=== PATIENT | female | born 1960 | race Caucasian/White ===

== ENCOUNTER → 2018-01-03 12:14 | Outpatient (CLI) | payer OTHER, SELFPAY ==
--- NOTE | 2018-01-03 12:23 | US_ITS ---
STUDY: ULTRASOUND BREAST - LEFT REASON FOR EXAM: Female, 57 years old. Pain in the left breast. TECHNIQUE: Axial and longitudinal images of the LEFT breast were performed with a high resolution ultrasound transducer. COMPARISON: Comparison is made with prior mammogram dated January 03, 2018 and prior ultrasound of the left breast dated December 13, 2014. FINDINGS: LEFT Breast: The patient is status post lumpectomy. At the site of the lumpectomy at the lung o'clock position breast, there is a focal area of shadowing most likely representing postoperative changes and scarring. No solid or cystic mass lesion is seen. US/Breast Limited Unilateral IMPRESSION: Findings in keeping with postoperative changes. ASSESSMENT CATEGORY: BIRADS Category 2: Benign. A letter regarding these results will be sent to the patient by the facility within 30 days. Electronically Signed: Manav Vargas MD at 15:20 EDT Tel [phone], Service support ,
--- NOTE | 2018-01-03 12:24 | BI_ITS ---
MAMMOGRAPHY - BILATERAL DIAGNOSTIC REASON FOR EXAM: Female, 57 years old. Two-year history of bilateral breast pain. PERTINENT HISTORY: Personal history of breast cancer. Prior left lumpectomy and radiation treatment. TECHNIQUE: Digital bilateral breast pio (3D mammographic acquisition) in the CC and MLO projections. 2-D mediolateral oblique (MLO) and craniocaudad (CC) views of both breasts were obtained. CAD: Full Field Digital Mammography with Computer Added Detection was performed. COMPARISON: Comparison is made with prior examination dated April 11, 2017 and December 13, 2014. FINDINGS: Breast Composition: There are scattered areas of fibroglandular density. Stable deformity of the upper outer aspect of the left breast in keeping with prior lumpectomy and radiation treatment. Stable calcification at the operative site. There now is evidence of a 7.2 mm x 9 mm nodular density in the deep slightly lateral portion of the retroareolar region of the left breast. Correlation with ultrasound is recommended. No other significant abnormalities are identified. BI/DIAG MAMM W/CAD, BILAT IMPRESSION: Status post left lumpectomy with postoperative deformity and scarring as described. New nodular density in the left breast as described. Correlation with ultrasound is recommended. ASSESSMENT CATEGORY: BIRADS Category 0: Incomplete. Need additional imaging evaluation. A letter regarding these results will be sent to the patient by the facility within 30 days. Approximately 10% of breast cancers are not detected by mammography. A normal mammogram should not delay biopsy of a clinically suspicious abnormality. Electronically Signed: Manav Vargas MD at 13:42 EDT Tel [phone], Service support ,
== END ==
PROVIDERS: Family Provider Family Medicine; PCP Family Medicine; Visit Provider Obstetrics & Gynecology
DX: N64.4 Mastodynia (principal)
CPT/HCPCS: 76642; 77062; 77066; G0279

== ENCOUNTER → 2018-01-20 07:21 | Outpatient (CLI) | payer OTHER, SELFPAY ==
--- NOTE | 2018-01-20 07:29 | US_ITS ---
ULTRASOUND GUIDED CORE BIOPSY REASON FOR EXAM: Female, 57 years old. Left breast lump. PERTINENT HISTORY: Prior left lumpectomy. COMPARISON: None. TECHNIQUE: (All elements of maximal sterile barrier technique followed, including US elements as applicable) Under direct sonographic guidance, 4 core biopsies of the hypoechoic nodule at the 11:00 position of breast at 4 cm from nipple was performed by the surgeon. US/US Breast Biopsy 1st Lesion IMPRESSION: Ultrasound guided core biopsy of a mass in the LEFT breast at 11:00 position of the breast at 4 cm from nipple without complication. Electronically Signed: Manav Vargas MD at 9:04 EDT Tel [phone], Service support ,
--- NOTE | 2018-01-20 08:10 | BRBX_PTH ---
PATIENT: MIGUELINA WEBER LOC: [facility] U#:[id number] AGE/SX: 65/F ROOM: RE01/20/[address]: Dr. Justus Echeverria MD : 1960 BED: DIS: SPEC #: [id number] RECD: 01/20/18 08:37 STATUS: NENA LOLY #: [id number] JAMISON: 01/20/18 08:[address]: Justus Echeverria DEPT: SURGICAL PATHOLOGY RECD BY: Humberto Blair ENTERED: 01/20/18 09:07 SP TYPE: BREAST BX OTHR DR: Dr. Davin Squires MD Tissues: Left breast, NOS Procedures: Surgery Specimen Level IV HEADER OPERATION: Left breast biopsy PRE-OP DIAGNOSIS: Left breast lump TISSUE SUBMITTED: Left breast core tissue ISCHEMIC TIME: 1 minute FIXATION TIME: 11.5 hours MICROSCOPIC DIAGNOSIS Left breast, core biopsy: Hyalinized stromal tissue. No evidence of malignancy. AM:efe 01/21/18 COMMENT Glandular epithelium is not represented in the biopsy. Clinical correlation is suggested. 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 MICROSCOPIC DESCRIPTION Slides are reviewed. GROSS DESCRIPTION Received in fixative is one container labeled with the patient's name and designated left breast biopsy. The specimen consists of multiple elongated fragments of gutierrez-yellow fibroadipose tissue that in aggregate measure 0.7 x 0.5 x 0.1 cm. The entire specimen is submitted in one cassette. / SJ:rg 01/20/18 TC:5 CPT: 69682
--- NOTE | 2018-01-20 11:34 | PCM.OPRPT ---
Problem List (1) Abnormal mammogram of left breast Status: Acute Report of Operation Date of Procedure: 01/20/18 Pre-Operative Diagnosis: r92.8 abnormal mammogram to left breast Post-Operative Diagnosis: Same Surgery/Procedure Performed:: 99768 ultrasound-guided needle core biopsy of abnormal mammogram the right breast Type of Anesthesia:: Local Description of Procedure: Ultrasound of the left breast in the upper inner quadrant revealed the lesion in question. I prepped the breast with chlorhexidine. I injected 1% lidocaine plain. I injected local down to the lesion. A skin hollis was made. Under ultrasound guidance for needle core biopsies were obtained. Under ultrasound guidance a small titanium clip was placed. Sterile dressings were applied and the patient tolerated the procedure well. - Admit VTE Documentation VTE Present on Admission: No VTE Mechan Device Prophylaxis: None VTE Pharm Prophylaxis ordered?: No Reason prophylaxis not ordered:: Treatment Not Indicated
--- NOTE | 2018-01-20 11:37 | OP.PCM_ITS ---
Problem List (1) Abnormal mammogram of left breast Status: Acute Report of Operation Date of Procedure: 01/20/18 Pre-Operative Diagnosis: r92.8 abnormal mammogram to left breast Post-Operative Diagnosis: Same Surgery/Procedure Performed:: [id number] ultrasound-guided needle core biopsy of abnormal mammogram the right breast Type of Anesthesia:: Local Description of Procedure: Ultrasound of the left breast in the upper inner quadrant revealed the lesion in question. I prepped the breast with chlorhexidine. I injected 1% lidocaine plain. I injected local down to the lesion. A skin hollis was made. Under ultrasound guidance for needle core biopsies were obtained. Under ultrasound guidance a small titanium clip was placed. Sterile dressings were applied and the patient tolerated the procedure well. - Admit VTE Documentation VTE Present on Admission: No VTE Mechan Device Prophylaxis: None VTE Pharm Prophylaxis ordered?: No Reason prophylaxis not ordered:: Treatment Not Indicated
== END ==
PROVIDERS: Family Provider Family Medicine; PCP Family Medicine; Visit Provider Surgery
DX: N63.22 Unspecified lump in the left breast, upper inner quadrant (principal)
CPT/HCPCS: 19083; 88305

== ENCOUNTER → 2019-01-05 10:06 | Outpatient (CLI) | payer OTHER, SELFPAY ==
--- NOTE | 2019-01-05 10:12 | BI_ITS ---
MAMMOGRAPHY - BILATERAL SCREENING REASON FOR EXAM: Female, 58 years old. Routine annual screening examination. PERTINENT HISTORY: Personal history of breast cancer. Prior left lumpectomy with radiation treatment. Aunt with breast cancer. TECHNIQUE: Digital bilateral breast pio (3D mammographic acquisition) in the CC and MLO projections. 2-D mediolateral oblique (MLO) and craniocaudad (CC) views of both breasts were obtained. CAD: Full Field Digital Mammography with Computer Added Detection was performed. COMPARISON: Comparison is made with prior study dated January 03, 2018. FINDINGS: Breast Composition: There are scattered areas of fibroglandular density. Stable deformity of the upper central portion of the left breast and keep with prior lumpectomy and radiation treatment. Stable dense calcification at the biopsy site. Stable 7.2 mm x 9 mm well-defined nodule in the deep slightly lateral portion of the retroareolar region of the left breast. An ultrasound biopsy of this abnormality was performed since prior mammogram. No other significant abnormalities are identified. There has been no significant change since the prior study. BI/SCREENING MAMM (CAD), BILAT IMPRESSION: Stable bilateral screening mammogram. Yearly follow-up mammogram recommended. (A) ASSESSMENT CATEGORY: BIRADS Category 2: Benign. A letter regarding these results will be sent to the patient by the facility within 30 days. Approximately 10% of breast cancers are not detected by mammography. A normal mammogram should not delay biopsy of a clinically suspicious abnormality. [id number] Electronically Signed: Manav Vargas, at 13:47 EDT , Service support ,
== END ==
PROVIDERS: Referring Provider Obstetrics & Gynecology; Visit Provider Obstetrics & Gynecology
DX: Z12.31 Encounter for screening mammogram for malignant neoplasm of breast (principal)
CPT/HCPCS: 77063; 77067

== ENCOUNTER → 2019-02-01 17:17 | Outpatient (CLI) | payer OTHER, SELFPAY ==
[2019-02-07 15:39] LABS: HPV Reflexed? NOT INDICATED
== END ==
PROVIDERS: Referring Provider Obstetrics & Gynecology; Visit Provider Obstetrics & Gynecology
DX: Z12.4 Encounter for screening for malignant neoplasm of cervix (principal)
CPT/HCPCS: 88175; G0145

== ENCOUNTER → 2019-03-31 13:19 | Outpatient (CLI) | payer OTHER, SELFPAY ==
--- NOTE | 2019-03-31 13:21 | US_ITS ---
STUDY: RENAL ULTRASOUND - COMPLETE REASON FOR EXAM: Female, 58 years old. UTI recurrent TECHNIQUE: Ultrasound evaluation of the kidneys was performed with real-time and static perez-scale imaging. COMPARISON: None. FINDINGS: RIGHT KIDNEY: Normal location of the right kidney, which is normal in size. The right kidney measures 10.8 x 5.1 x 4.2 cm. There is a normal cortex of the right kidney. The renal cortex measures 1.5 cm. There is no right renal mass or cyst. There are no right renal calculi. There is no right hydronephrosis. DISTAL RIGHT URETER: There is non-visualization of the distal right ureter. There is no demonstrated right ureterovesical junction calculus. There is no demonstrated right ureteral jet. LEFT KIDNEY: Normal location of the left kidney, which is normal in size. The left kidney measures 11.6 x 4.9 x 4.5 cm. There is a normal cortex of the left kidney. The renal cortex measures 1.3 cm. There is no left renal mass or cyst. There are no left renal calculi. There is no left hydronephrosis. DISTAL LEFT URETER: There is non-visualization of the distal left ureter. There is no demonstrated left ureterovesical junction calculus. There is no demonstrated left ureteral jet. BLADDER: The distended urinary bladder has a volume of 543.49 ml. The empty urinary bladder has a volume of 82.36 ml. There is a normal wall thickness of the distended urinary bladder. There is no demonstrated mass within the urinary bladder. There are no demonstrated bladder calculi. US/Kidney and Bladder IMPRESSION: Normal ultrasound of the kidneys and urinary bladder. Electronically Signed: Kb Bae MD at 18:47 EDT Tel , Service support ,
== END ==
PROVIDERS: Referring Provider Urology; Visit Provider Urology
DX: N39.0 Urinary tract infection, site not specified (principal)
CPT/HCPCS: 76770

== ENCOUNTER → 2021-03-31 09:43 | Outpatient (CLI) | payer OTHER, SELFPAY ==
[2021-03-31 10:49] LABS: EXAGEN MAILED SPECIMEN
[2021-03-31 12:09] LABS: Color, Urine Yellow (Yellow); Glucose, Dipstick Normal (Normal); Ketone-Dipstick Negative (Negative); Leukocyte Esterase-Dipstick 100 /ul (Negative); Nitrite-Dipstick Negative (Negative); Occult Blood-Urine Negative /ul (Negative); Protein-Dipstick Negative (Negative); Specific Gravity, Urine 1.005 (1.002-1.030); Urine Bilirubin Dipstick Negative (Negative); Urine Clarity Sl. Cloudy (Clear); Urine Urobilinogen Normal (Normal)
[2021-03-31 12:12] LABS: Absolute Lymphocyte Count 0.88 X10^3/uL (0.83-4.51); Absolute Neutrophil Count 2.6 X10^3/uL (2.0-7.7); Basophil# 0.01 X10^3/uL; Basophil% 0.3 % (0-1); Eosinophil# 0.02 X10^3/uL; Eosinophils% 0.5 % (0-5); Hematocrit 37.9 % (37-47); Hemoglobin 12.3 g/dL (12.0-15.0); Lymphocyte # 0.88 X10^3/ul (0.83-4.51); Mean Corp Hgb Conc 32.5 g/dL (32-36); Mean Corpuscular Hgb 30.9 pg (27.0-32.0); Mean Corpuscular Volume 95.2 fL (81-99); Mean Platelet Vol. 10.1 fl (6.2-12.0); Monocyte% 7.8 % (0-10); NRBC Flagged by Analyzer 0 % (0-5); Neutrophil % 67.9 % (47-70); Platelet Count 137 K/mm3 (150-450); RBC Distribution Width CV 12.3 % (11.6-14.6); RBC Distribution Width SD 42.9 fl (35.1-43.9); Red Blood Count 3.98 M/mm3 (4.2-5.4); White Blood Count 3.8 K/mm3 (4.4-11.0)
[2021-03-31 12:32] LABS: Protein, Urine (Random) < 6.0 mg/dL (<11.9)
[2021-03-31 12:43] LABS: AST(SGOT) 29 U/L (15-37); Alanine Aminotransfer ALT/SGPT 45 U/L (13-56); Albumin, Serum 4.2 g/dL (3.2-5.0); Alkaline Phosphatase 81 U/L (45-117); Anion Gap 6 (5-15); BUN 14 mg/dL (7-18); BUN/Creat Ratio 17.5 RATIO (10-20); Calcium,Total 9.3 mg/dL (8.5-10.1); Chloride 104 mmol/L (98-107); EST Glomerular Filtration Rate 77 mL/min (>60); Est Glom Filt Rate - Afr Amer 94 mL/min (>60); Glucose 101 mg/dL (74-106); Potassium 3.8 mmol/L (3.5-5.1); Protein, Total 8.2 g/dL (6.4-8.2); Sodium Level 138 mmol/L (136-145)
[2021-03-31 13:00] LABS: Hepatitis B Surface Antibody Reactive; Hepatitis B Surface Antigen Non-Reactive (Nonreactive); Hepatitis C Antibody Non-Reactive (Nonreactive)
== END ==
PROVIDERS: Referring Provider Internal Medicine Rheumatology; Visit Provider Internal Medicine Rheumatology
DX: M06.4 Inflammatory polyarthropathy (principal); R76.8 Other specified abnormal immunological findings in serum; K21.9 Gastro-esophageal reflux disease without esophagitis; G47.00 Insomnia, unspecified; K57.90 Diverticulosis of intestine, part unspecified, without perforation or abscess without bleeding; Z85.3 Personal history of malignant neoplasm of breast
CPT/HCPCS: 36415; 80053; 81002; 82570; 84156; 85025; 86706; 86803; 87340

== ENCOUNTER → 2021-04-22 10:14 | Outpatient (CLI) | payer OTHER, SELFPAY ==
[2021-04-22 12:28] LABS: Prothrombin Time (Protime)PT. 12.2 SECONDS (11.7-14.9)
[2021-04-22 12:29] LABS: Partial Thromboplast Time 28.4 Seconds (24.1-36.2)
[2021-04-24 04:06] LABS: Dilute Prothrombin Time (dPT) 37.5 sec (0.0-55.0); Dilute Russell Viper Venom 40.2 sec (0.0-47.0); Hexagonal Phase Phospholipid 0 sec (0-11); Thrombin Time 18.5 sec (0.0-23.0); dPT Confirm Ratio 1.17 Ratio (0.00-1.40)
[2021-04-24 07:44] LABS: Interpretation Comment: (.); Thrombin Time 18.2 sec (0.0-23.0)
== END ==
PROVIDERS: Referring Provider Internal Medicine Rheumatology; Visit Provider Internal Medicine Rheumatology
DX: M06.4 Inflammatory polyarthropathy (principal); M35.1 Other overlap syndromes; K21.9 Gastro-esophageal reflux disease without esophagitis; G47.00 Insomnia, unspecified; K57.90 Diverticulosis of intestine, part unspecified, without perforation or abscess without bleeding; Z79.899 Other long term (current) drug therapy; Z85.3 Personal history of malignant neoplasm of breast
CPT/HCPCS: 36415; 85598; 85610; 85670; 85730

== ENCOUNTER → 2023-05-14 | Outpatient (CLI) | payer OTHER, SELFPAY ==
[2023-05-14 12:28] LABS: Pathologist Comment May follow
[2023-05-14 13:01] LABS: Source- Body Fluid SYNOVIAL
[2023-05-14 13:02] LABS: AUTO B FLUID DILUENT BKGD CT WBC <0.1 RBC <0.01 (W<.1,R<.01); Synovial Fld Mononuclear WBC # 0.435 10^3/ul; Synovial Fld Mononuclear WBC % 92.7 %; Synovial Fld Polynuclear WBC # 0.034 10^3/uL; Synovial Fld Polynuclear WBC % 7.3 %
[2023-05-14 13:03] LABS: Color / Synovial Fluid Yellow (Pale Yellow); Source / Synovial Fluid LEFT KNEE; Viscosity / Synovial Fluid Mod. Viscous (HIGH)
[2023-05-14 13:04] LABS: Appearance /Synovial Fluid Sl Cl (CLEAR)
[2023-05-14 13:36] LABS: RBC /Synovial Fluid 495 /mm3 (0)
[2023-05-14 14:00] LABS: CRYSTALS, BODY FLUID See PATH REV
[2023-05-14 14:15] LABS: Body Fluid QC Type(s) BF1Q,BF2Q,BF3Q; Lymph 6 %; Monocyte /Synovial Fluid 70 %; Neutrophil 16 % (0-25); Other Cell /Synovial Fluid 8 %
[2023-05-18 08:49] LABS: Pathologist Review Reviewed
== END | disposition home or self-care (01) ==
LOC: LABSPEC 12:17
PROVIDERS: Referring Provider Internal Medicine Rheumatology; Visit Provider Internal Medicine Rheumatology
DX: M06.4 Inflammatory polyarthropathy (principal); Z79.899 Other long term (current) drug therapy
CPT/HCPCS: 87070; 87075; 87205; 89050; 89051; 89060

== ENCOUNTER → 2024-03-31 | Outpatient (CLI) | payer OTHER, SELFPAY ==
--- NOTE | 2024-03-31 12:43 | US_ITS ---
INDICATION: UTI recurrent EXAMINATION: Ultrasound US Kidney(s) complete (eg, kidneys and bladder) TECHNIQUE: Ya scale and color doppler images were obtained of the kidneys. COMPARISON: Prior study dated: 03/31/2019 FINDINGS: RIGHT KIDNEY: 10.6 x 4.1 x 4.3 cm. There is no hydronephrosis. No shadowing calculus, focal lesion or perinephric collection is demonstrated. LEFT KIDNEY: 11.6 x 3.9 x 4.7 cm. There is no hydronephrosis. No shadowing calculus, focal lesion or perinephric collection is demonstrated. URINARY BLADDER: Normally distended without wall thickening. Prevoid bladder volume 405 mL. The ureteral jets are visualized bilaterally. US/Kidney and Bladder IMPRESSION: Negative renal ultrasound. Electronically Signed: Ibrahima Grace MD at 14:51 EDT ,
== END | disposition home or self-care (01) ==
PROVIDERS: Referring Provider Urology; Visit Provider Urology
DX: N39.0 Urinary tract infection, site not specified (principal)
CPT/HCPCS: 76770